=== PATIENT | female | born 1965 | race Caucasian/White ===

== ENCOUNTER 2017-02-12 03:38 | Emergency (ER) | payer OTHER ==
--- NOTE | ~2017-02-12 | CR72 ---
[facility] A Service of [facility] & [facility] RADIOLOGY TEXT RESULTS PATIENT: BRIGIDA CARTER LOCATION: [facility] : [birth year] UNIT #: [id number] AGE: [address]: Timbo Palafox MD SEX: F ORDER DR: [id number] [facility] [address] [place], [place] [address] [id number] MR#: [id number] Acc #: [id number] NAME: BRIGIDA CARTER : 1965 SEX: F STUDY DATE/TIME: 02/12/2017 3:25 UNIT: [facility] ROOM: STUDY DESCRIPTION: CR Chest Single View Portable Attending Physician: Timbo Palafox M.D. Ordering Physician: Timbo Palafox M.D. Primary Care Physician: Primary Care Physician No MEDICAL IMAGING REPORT This report is preliminary unless electronic signature is present EXAM AP portable chest 02/12/2017 HISTORY 51-year-old female in the ED complaining of 4-day history of shortness of air and cough. TECHNIQUE AP portable upright chest x-ray. FINDINGS Mild infiltrate or atelectasis in the left lateral lung base. The lungs are otherwise clear. Heart size and pulmonary vascularity are normal. No visible pleural effusion. IMPRESSION Mild infiltrate or atelectasis in the left lateral lung base. Dictated by... Ashkan Michelle M.D. THIS IS AN ELECTRONICALLY VERIFIED REPORT Ashkan Michelle M.D. at 02/12/2017 9:58 PM ORAL/dyana TD: 02/12/2017 12:21 JOB #: [id number] MEDICAL IMAGING REPORT COPY
[~2017-02-12 03:38] MED LIST: ACETAMINOPHEN PO; ADDERALL 10 MG10 M1 PO; ALBUTEROL 0.5ML INH; ALBUTEROL MININEB NEB; ALBUTEROL0.83 MG/ML INH; ALBUTEROL17 GM; ALBUTEROL17 GM INH; ALPRAZOLAM PO; AMOXICILLIN PO; AMOXICILLIN500 M1 PO; BACTRIM DS TABL1 TA1 PO; BENZONATATE; BENZONATATE PO; BIAXIN PO; BROMFED DM PO; CELEXA PO; CIPRO PO; CLEOCIN150 MG PO; DARVOCET-N 1001 TAB PO; DEPRESSION PILL; DICLOFENAC PO; DOXYCYCLINE HY100 M3 PO; DOXYCYCLINE PO; ERY-TAB500 MG PO; FLAGYL PO; IBUPROFEN PO; IBUPROFEN800 MG PO; KETOPROFEN PO; LEVAQUIN750 MG PO; MAGIC MOUTH WASH; MEDROL; MEDROL DOSEPAK4 MG PO; MUCINEX DM ER1 EACH PO; MUCINEX DM1 TAB.SR . PO; NAPROXEN PO; NEXIUM PO; NORCO 7.5/325 T1 TAB PO; ONDANSETRON HCL4 MG PO; OXYGEN 2 LITERS; PAXIL PO; PEN-VEE K PO; PERCOCET 5-3251 TAB PO; PERCOCET 7.5-31 EACH PO; PERCOCET 71 UDTAB 7. PO; PERCOCET PO; PHENERGAN PO; PHENERGAN25 M1; PHENERGAN25 M1 PO; PHENERGAN25 MG PO; PREDNISONE PO; PREVACID PO; PRILOSEC; PROVENTIL INH0.5 ML HHN; PYRIDIUM PO; RAYOS5 MG PO; ROBITUSSIN100 MG/52 PO; SEPTRA; SEROQUEL PO; STEROID INHALER; SUBOXONE PO; SYMBICORT INH; TOPAMAX; TOPAMAX PO; TOPAMAX15 MG; TOPAMAX50 MG; TYLENOL #3 PO; ULTRAM PO; VICODIN 5/500 T1 TAB PO; VISTARIL; VISTARIL PO; VISTARIL50 MG; VOLTAREN75 MG PO; XANAX XR2 MG PO; XANAX1 MG; XANAX1 MG PO; XANAX2 MG; XANAX2 MG PO; ZANTAC PO; ZITHROMAX PO; ZITHROMAX1 G/PKT PO; ZOFRAN ODT4 MG PO; ZOFRAN PO; [UNRECOGNIZED DRUG - OTHER] PO; [UNRECOGNIZED DRUG - SUPPLY]
[2017-02-12 04:01] LABS: URINE SOURCE CLEAN CATCH
[2017-02-12 04:15] LABS: URINE APPEARANCE CLOUDY; URINE BILIRUBIN NEG (NEG); URINE BLOOD 2+ (NEG); URINE COLOR DK YELLOW; URINE GLUCOSE NEG (NEG); URINE KETONE NEG (NEG); URINE LEUKOCYTE ESTERASE 2+ (NEG); URINE NITRATE NEG (NEG); URINE PROTEIN NEG (NEG); URINE SPECIFIC GRAVITY 1.024 (1.003-1.035)
[2017-02-12 04:18] LABS: CULTURE INDICATED? YES; URINE BACTERIA AUWI NEG (NEGATIVE); URINE SQUAMOUS EPITHELIAL CELL OCC /[HPF]; UWBCS1 AUWI 25-50 (0-5)
== END 2017-02-12 05:10 | disposition home or self-care (01) ==
LOC: CED 03:38
PROVIDERS: Emergency Medicine
DX: J44.1 Chronic obstructive pulmonary disease with (acute) exacerbation (principal); J18.1 Lobar pneumonia, unspecified organism; N30.00 Acute cystitis without hematuria; K21.9 Gastro-esophageal reflux disease without esophagitis; F31.9 Bipolar disorder, unspecified; F17.210 Nicotine dependence, cigarettes, uncomplicated; Z79.899 Other long term (current) drug therapy; Z88.8 Allergy status to other drugs, medicaments and biological substances
CPT/HCPCS: 71010; 81003; 87086; 87088; 87186; 94640; 99284